=== PATIENT | female | born 1985 | race Caucasian/White ===

== ENCOUNTER 2018-09-12 21:02 | Emergency (ER) | payer OTHER ==
[~2018-09-12] VITALS: Ht 167.6 cm; Wt 96.4 kg
[2018-09-12 21:09] VITALS: Ht 167.6 cm; Wt 96.4 kg
[2018-09-12 21:48] LABS: BASOPHIL % 0.3 % (0-2); PLATELET COUNT 216 x10^3mcL (130-400); RED CELL DISTRIBUTION WIDTH 13.7 % (11.5-14.5)
[2018-09-12 23:00] VITALS: BP 115/74
== END 2018-09-12 23:00 | disposition home or self-care (01) ==
LOC: ED 21:02
PROVIDERS: Emergency Medicine
DX: O09.91 Supervision of high risk pregnancy, unspecified, first trimester (principal); O20.0 Threatened abortion; O24.911 Unspecified diabetes mellitus in pregnancy, first trimester; E11.9 Type 2 diabetes mellitus without complications; O99.611 Diseases of the digestive system complicating pregnancy, first trimester; Z3A.11 11 weeks gestation of pregnancy; Z87.19 Personal history of other diseases of the digestive system
CPT/HCPCS: 36415; 82962; J2765

== ENCOUNTER 2019-01-27 14:19 | Emergency (ER) | payer OTHER ==
[~2019-01-27] VITALS: Ht 167.6 cm; Wt 112.6 kg
[2019-01-27 14:27] VITALS: BP 130/94; Ht 167.6 cm; Wt 112.6 kg
== END 2019-01-27 15:11 | disposition home or self-care (01) ==
LOC: ED 14:19
DX: S61.210A Laceration without foreign body of right index finger without damage to nail, initial encounter (principal); E11.9 Type 2 diabetes mellitus without complications; W26.8XXA Contact with other sharp object(s), not elsewhere classified, initial encounter; Y93.89 Activity, other specified; Y92.89 Other specified places as the place of occurrence of the external cause; Y99.8 Other external cause status

== ENCOUNTER 2019-05-08 12:12 | Emergency (ER) | payer OTHER | END 2019-05-08 12:19 | disposition left against medical advice (07) | LOC: ED 12:12 | DX: Z53.21 Procedure and treatment not carried out due to patient leaving prior to being seen by health care provider (principal) ==

== ENCOUNTER 2019-05-08 12:50 | Emergency (ER) | payer OTHER ==
[~2019-05-08] VITALS: Ht 167.6 cm; Wt 109.3 kg
[2019-05-08 13:05] VITALS: BP 106/78; Ht 167.6 cm; Wt 109.3 kg
== END 2019-05-08 13:39 | disposition home or self-care (01) ==
LOC: ED 12:50
DX: B35.1 Tinea unguium (principal); E11.9 Type 2 diabetes mellitus without complications